=== PATIENT | female | born 1970 | race Caucasian/White ===

== ENCOUNTER 2017-02-09 05:49 | Inpatient (IN) | payer OTHER ==
[2017-02-08 09:54] VITALS: BMI 27.0
[~2017-02-09] VITALS: Ht 152.4 cm; Wt 62.7 kg
[2017-02-09] VITALS (26 sets, daily range): BP systolic 122–161; BP diastolic 73–88; PULSE 60–79; RESP 16–21; Ht 152.4 cm; Wt 62.7 kg
[~2017-02-09 05:49] MED LIST: AMLO-147 PO; LISI-329 PO
[2017-02-09] MEDS ORDERED: OXYCODONE/ACETAMINOPHEN (5/325) TAB PO PRN ×2 (06:30)
[2017-02-09] MEDS ORDERED: FENTAnyl 50 MCG/ML VIAL IV PRN ×2 (06:30)
[2017-02-09] MEDS ORDERED: hydrALAzine 20 MG INJ IV PRN (06:30)
[2017-02-09] MEDS ORDERED: MIDAZOLAM 1 MG/ML 2 ML INJ IV PRN (06:30)
[2017-02-09] MEDS ORDERED: HYDROmorphONE (0.2 MG/ML) 10ML SYG IV PRN ×3 (06:30)
[2017-02-09] MEDS ORDERED: ONDANSETRON 4 MG INJ IV PRN ×2 (06:30→09:30)
[2017-02-09] MEDS ORDERED: GLYCOPYRROLATE 0.4 MG INJ ONE (06:30)
[2017-02-09] MEDS ORDERED: EPHEDrine SULFATE 50 MG/5 ML SYG IV PRN (06:30)
[2017-02-09] MEDS ORDERED: LABETALOL HCL 20MG INJ IV PRN (06:30)
[2017-02-09] MEDS ORDERED: ROCURONIUM 50 MG INJ ONE (06:30)
[2017-02-09] MEDS ORDERED: morphine (1 MG/ML) 10ML SYRINGE IV PRN ×3 (06:30)
[2017-02-09] MEDS ORDERED: MEPERIDINE 25 MG INJ IV PRN (06:30)
[2017-02-09] MEDS ORDERED: LIDOCAINE 2% (SDV) 5 ML INJ ONE (06:30)
[2017-02-09] MEDS ORDERED: ATROPINE 1 MG/10 ML SYRINGE IV PRN (06:30)
[2017-02-09] MEDS ORDERED: NEOSTIGMINE 3 MG/3 ML SYRINGE ONE (06:30)
[2017-02-09] MEDS ORDERED: FENTAnyl 50 MCG/ML VIAL ONE (06:30)
[2017-02-09] MEDS ORDERED: PROPOFOL 20 ML ONE (06:30)
[2017-02-09] MEDS ORDERED: DIPHENHYDRAMINE 50 MG INJ IV PRN (06:30)
[2017-02-09] MEDS ORDERED: MIDAZOLAM 1 MG/ML 2 ML INJ ONE (06:30)
[2017-02-09] MEDS ORDERED: DEXAMETHASONE 4 MG/ML 1 ML INJ ONE (06:31)
[2017-02-09] MEDS ORDERED: ONDANSETRON 4 MG INJ ONE (06:31)
[2017-02-09] MEDS ORDERED: VASOPRESSIN 20 UNITS INJ ONE (06:42)
[2017-02-09] MEDS ORDERED: CEFAZOLIN 1 GM INJ ONE (07:00)
[2017-02-09] MEDS ORDERED: LABETALOL HCL 20MG INJ ONE (07:36)
[2017-02-09] MEDS ORDERED: HYDROmorphONE 0.2 MG/ML PCA IV SCH (09:30)
[2017-02-09] MEDS: LACTATED RINGER'S 1,000 ML IV SCH ×2 (16:16→21:39)
[2017-02-09] MEDS: MAGNESIUM HYDROXIDE 30ML CUP PO SCH (16:58)
[2017-02-10 00:05] VITALS: BP 158/86; RESP 19
[2017-02-10 00:12] VITALS: BP 158/83; RESP 18
[2017-02-10 05:00] VITALS: BP 155/80; PULSE 72; RESP 18
[2017-02-10 05:34] LABS: ADD SCAN DIFF NO
[2017-02-10 05:35] LABS: BASOPHILS % 0.1 % (0.0-2.0); HEMATOCRIT 33.1 % (37.0-47.0); HEMOGLOBIN 10.2 g/dl (12.0-16.0); LYMPHOCYTES % 5.5 % (15.0-51.0); MEAN CORPUSCULAR HEMOGLOBIN 21.7 pg (29.0-33.0); MEAN CORPUSCULAR HGB CONC 30.8 g/dl (32.0-37.0); MEAN CORPUSCULAR VOLUME 70.4 fl (82.0-101.0); MEAN PLATELET VOLUME 9.9 fl (7.4-10.4); MONOCYTE # 0.9 10^3/ul (0.3-0.9); NEUTROPHILS % 88.8 % (39.0-77.0); PLATELET COUNT 438 10^3/UL (140-415); RED CELL DISTRIBUTION WIDTH 20.7 % (11.5-14.5)
[2017-02-10] MEDS: LACTATED RINGER'S 1,000 ML IV SCH ×3 (05:46→20:21)
[2017-02-10] MEDS ORDERED: BISACODYL 10 MG SUPP PR ONE ×2 (06:00→17:00)
[2017-02-10 06:18] LABS: ALBUMIN 4.6 g/dl (3.3-4.9); ALBUMIN/GLOBULIN RATIO 1.48; BILIRUBIN,INDIRECT 0.3 mg/dl (0-1.1); BILIRUBIN,TOTAL 0.3 mg/dl (0.2-1.3); CALCIUM 9.2 mg/dl (8.4-10.2); CREATININE 0.5 mg/dl (0.44-1.00); TOTAL PROTEIN 7.7 g/dl (6.1-8.1)
[2017-02-10] MEDS: MAGNESIUM HYDROXIDE 30ML CUP PO SCH ×2 (06:43→16:16)
[2017-02-10 08:00] VITALS: BP 146/78; RESP 18
[2017-02-10] MEDS ORDERED: ACETAMINOPHEN 325 MG TAB PO PRN (08:30)
--- NOTE | 2017-02-10 08:39 | PREOPHP ---
DATE OF ADMISSION: 02/09/2017 HISTORY OF PRESENT ILLNESS: This is a 46-year-old lady, 5, para 3 with 3 spontaneous abortions. Her last normal menstrual period was a few days prior to admission. She was admitted for total abdominal hysterectomy, possible bilateral salpingo-oophorectomy. This patient complains of chronic pelvic pain for many months and getting worse up to the time of admission. She bleeds very heavy with her period associated with blood clots for many months as well. She had 1 abnormal Pap smear, it was ASCUS. She also is known to have fibroid uterus so she was admitted for the above procedure. The procedures were explained to the patient and she understood everything totally. The risks and benefits and alternatives were discussed with her as well. PAST MEDICAL HISTORY: No history of diabetes, TB, asthma. ALLERGIES: NO ALLERGIES. SOCIAL HISTORY: The patient does not smoke. MEDICATIONS: She takes medication for her high blood pressure. MODEL ARTISTS' HISTORY: She had menarche at the age of 12, every 28 days and for 3 to 4 days duration and moderate in amount. She is 5, para 3, with 3 sections and 2 spontaneous abortions. FAMILY HISTORY: Mother has high blood pressure. PAST SURGICAL HISTORY: She also has had surgery on the back of the left ear in 2006. REVIEW OF SYSTEMS: CARDIOVASCULAR: No chest pain. RESPIRATORY: No cough. GASTROINTESTINAL: No diarrhea. No vomiting. GENITOURINARY: No dysuria. PHYSICAL EXAMINATION: GENERAL: Reveals a conscious, coherent lady in no acute distress. VITAL SIGNS: Blood pressure 120/80, pulse rate 80 per minute, respirations 16 per minute. BREASTS: Within normal limits. CARDIAC: Heart within normal limits. LUNGS: Within normal limits. ABDOMEN: Soft. No organomegaly. GENITOURINARY: Pelvic exam revealed the cervix to be firm. Uterus about 14 weeks' size. Adnexa were negative for masses. RECTAL: Exam confirmed pelvic findings. EXTREMITIES: No pedal edema. ADMITTING DIAGNOSES: 1. Fibroid uterus. 2. Chronic pelvic pain. 3. Menorrhagia. 4. Rule out pelvic adhesions. PLAN: The patient was planned to have the above procedure. Dictated By: Agatha Crook MD /debi/ /Document#: [id number]
[2017-02-10] MEDS: AMLODIPINE 10 MG TAB PO SCH (09:17)
[2017-02-10] MEDS: HYDROCHLOROTHIAZIDE 25 MG TAB PO SCH (09:17)
[2017-02-10] MEDS: LISINOPRIL 20 MG TAB PO SCH (09:18)
[2017-02-10] MEDS ORDERED: OXYCODONE/ACETAMINOPHEN (5/325) TAB PO PRN ×2 (10:00)
[2017-02-10 19:00] VITALS: BP 129/70; RESP 19
[2017-02-10] MEDS: OXYCODONE/ACETAMINOPHEN (5/325) TAB PO PRN (23:51)
[2017-02-11 05:17] LABS: ADD SCAN DIFF NO
[2017-02-11 05:22] LABS: BASOPHILS % 0.3 % (0.0-2.0); EOSINOPHILS # 0.1 10^3/ul (0.0-0.5); EOSINOPHILS % 0.7 % (0.0-7.0); HEMATOCRIT 30.7 % (37.0-47.0); HEMOGLOBIN 9.2 g/dl (12.0-16.0); LYMPHOCYTES # 1.8 10^3/ul (0.8-2.9); MEAN CORPUSCULAR HEMOGLOBIN 21.4 pg (29.0-33.0); MEAN CORPUSCULAR VOLUME 71.6 fl (82.0-101.0); MEAN PLATELET VOLUME 9.8 fl (7.4-10.4); MONOCYTE # 0.8 10^3/ul (0.3-0.9); MONOCYTES % 6.1 % (0.0-11.0); NEUTROPHIL # 9.5 10^3/ul (1.6-7.5); NEUTROPHILS % 77.4 % (39.0-77.0); PLATELET COUNT 410 10^3/UL (140-415); RED BLOOD COUNT 4.29 10^6/ul (4.20-5.40); RED CELL DISTRIBUTION WIDTH 21.5 % (11.5-14.5); WHITE BLOOD COUNT 12.3 10^3/ul (4.8-10.8)
[2017-02-11] MEDS: OXYCODONE/ACETAMINOPHEN (5/325) TAB PO PRN ×2 (05:32→14:20)
[2017-02-11] MEDS: MAGNESIUM HYDROXIDE 30ML CUP PO SCH ×2 (05:33→17:00)
[2017-02-11 06:06] LABS: CALCIUM 8.8 mg/dl (8.4-10.2); CREATININE 0.57 mg/dl (0.44-1.00); POTASSIUM 3.6 mmol/L (3.5-5.1)
[2017-02-11] MEDS: LACTATED RINGER'S 1,000 ML IV SCH ×2 (07:30→15:30)
[2017-02-11 08:34] VITALS: BP 150/82; RESP 18
[2017-02-11] MEDS: HYDROCHLOROTHIAZIDE 25 MG TAB PO SCH (09:07)
[2017-02-11] MEDS: AMLODIPINE 10 MG TAB PO SCH (09:07)
[2017-02-11] MEDS: LISINOPRIL 20 MG TAB PO SCH (09:07)
[2017-02-11 20:25] VITALS: BP 101/59; RESP 20
--- NOTE | 2017-02-15 13:36 | OPR ---
DATE OF OPERATION: 02/09/2017 PREOPERATIVE DIAGNOSIS: Fibroid uterus, chronic pelvic pain, perineal relaxation, and menorrhagia. POSTOPERATIVE DIAGNOSIS: Fibroid uterus, chronic pelvic pain, perineal relaxation, and menorrhagia, plus bilateral ovarian cysts with pelvic and abdominal adhesions. SURGEON: . ANESTHESIA: General. OPERATION PERFORMED: Exploratory laparotomy, total abdominal hysterectomy, lysis of severe pelvic and abdominal adhesions, bilateral ovarian cystectomy and vaginal suspension. OPERATIVE TECHNIQUE: Under general anesthesia, the patient was prepped and draped in the usual fashion for abdominal surgery. After checking for the effect of the anesthesia, the previous Pfannenstiel scar was excised. A 12 cm skin incision was performed by opening the skin up to the fascia. Small blood vessels were noted to be oozing and these were cauterized. The fascia was opened transversely and peritoneal transversely. The peritoneum was opened vertically. There was some thick band of adhesions noted at the midportion of the uterus. The peritoneum was attached to the anterior midportion of the uterus. So, the incision was carried transversely by cutting the muscles and the peritoneum transversely, then the severe adhesions that were attached to the anterior parietal peritoneum were all lysed by sharp and blunt dissection. After lysing the adhesions and uterus from the anterior parietal peritoneum, then the self retaining retractor was put in place, but removed after having difficulty in pulling the uterus out, then the uterus was pulled out from the pelvic cavity. The right utero-ovarian and right uterotubal ligament was grasped with Tony's as well as the left utero-ovarian and left uterotubal ligament were both grasped with Tony's for traction. Then the left round ligament was grasped with 2 Tony's and cut and 0 Vicryl was used and tied. The left broad ligament was skeletonized for the development of the bladder flap. The left uteroovarian and left uterotubal ligament was grasped with 2 hemiclamps and 4-0 Vicryl with straight Tony and cut. At first a free tie with 0 Vicryl was used followed by Yessica suture. The same thing was done on the right side. The bleeders were checked and there was no bleeding noted. Then a picture was taken was taken on the uterus. The uterus was noted to be about 16 weeks size and globular. Then once again the bladder was from the cervix by sharp and blunt dissection. Thick band of adhesions were noted due to the previous times 3. Then the left uterine vessels were brought to view. The left uterine vessels were with hemiclamp and with straight Tony and cut, a stick tie with 0 Vicryl was used on each clamp. The same thing was done on the right side. The bleeders were checked and there was no bleeding noted. Once again, the bladder was from the cervix by sharp and blunt dissection. Then 2 more Tony's were placed at the hepato-cervical tissue on the left and right side and was cut and stick tie with 0 Vicryl was used and the body of the uterus was excised. The remaining cervix was grasped with 2 fingertooth tenaculum. Then the self-retaining retractor was put in place, the bladder blade was put in place, the bowels were packed away from the operative field with the aid of 4 wet lap sponges and the upper blade was put in place, and once again the bladder was from the cervix by sharp and blunt dissection. About 4 more Tony's were placed at the hepatocervical tissue on the left and right side, and on its clamp the tissue was cut and a stick tie with 0 Vicryl was used. Bleeders were checked and there was no bleeding noted. Another piece of cervix was excised. The pelvis was noted to be very deep. Then once again the cervix was grasped with 2 fingertooth tenaculum and was again the bladder was from the cervix by sharp and blunt dissection. About 5 more Tony's were placed at the hepatocervical tissue on the left and right side and on its clamp the tissue was cut and a stick tie with 0 Vicryl was used. Then the left uterosacral ligament was grasped with Tony and cut, a stick tie with 0 Vicryl was used and tied. The same thing was done on the right side. Cervical vaginal angle was brought to view. The cervical vaginal angle was grasped with 2 Yessica clamps and the rest of the cervix was excised. Yessica suture was put in on its clamp. Then the vaginal cuff was closed with reinforcement suture with 2 more continuous sutures with 0 Vicryl. The right angle of the vagina was sutured with right paracervical tissue and in turn tied with a right round ligament for vaginal suspension. After checking for any bleeders, and which there were none, the same thing was done on the left side. The over it was noted to have corpus luteal cyst. The corpus luteal cyst on the right side was excised. The remaining ovarian was sutured with 2-0 chromic. Bleeders were checked and there was no bleeding noted. The same thing was done on the left side. There was small noted to be about 3 by 3 cm, but small 1 cm corpus luteal cyst, also the biopsy on the left ovary was done. The remaining ovarian tissue was sutured with continuous suture with 0 chromic. Bleeders were checked and there was no bleeding noted. After checking for any bleeders, and which there were none, irrigation was done with about 200 cc of normal saline. Once again, all the stumps were checked for any bleeders and there was no bleeding noted. Then after correct sponge count and instrument count was confirmed by the industrial machine system technician and gas brazer, the abdomen was closed in the usual fashion using 0 Vicryl for the peritoneum, 0 Vicryl for the muscles, for the fascia 0 Vicryl continuous stitch was used, followed by a few figure of 8 sutures for the subcutaneous tissues closed with 3-0 Vicryl, and the skin was closed with 3-0 Vicryl subcuticular suture was used. The patient tolerated the procedure well. Estimated blood loss was about 300 cc. Vital signs were stable during and after the procedure. Dictated By: Agatha Crook MD /debi/ac /Document#: [id number]
== END 2017-02-11 21:20 | disposition home or self-care (01) | DRG 743 ==
LOC: REC 05:49 → MERGE 07:30 → MS1 09:29
PROVIDERS: ADMIT Obstetrics & Gynecology; ATTEND Obstetrics & Gynecology
PROC: 0UTC0ZZ Resection of Cervix, Open Approach (ICD-10-PCS; 2017-02-09)
PROC: 0UB20ZZ Excision of Bilateral Ovaries, Open Approach (ICD-10-PCS; 2017-02-09)
PROC: 0DNW0ZZ Release Peritoneum, Open Approach (ICD-10-PCS; 2017-02-09)
PROC: 0USG0ZZ Reposition Vagina, Open Approach (ICD-10-PCS; 2017-02-09)
PROC: 30233N1 Transfusion of Nonautologous Red Blood Cells into Peripheral Vein, Percutaneous Approach (ICD-10-PCS; 2017-02-09)
PROC: 0UT90ZZ Resection of Uterus, Open Approach (ICD-10-PCS; principal; 2017-02-09 07:30)
DX: D25.9 Leiomyoma of uterus, unspecified (principal); K66.0 Peritoneal adhesions (postprocedural) (postinfection); N83.12 Corpus luteum cyst of left ovary; N83.11 Corpus luteum cyst of right ovary; N81.89 Other female genital prolapse
CPT/HCPCS: 36430; 80048; 80053; 84702; 85025; 86850; 86900; 86901; 86920; 87086; 88305; J0690; J1100; J1170; J2250; J2405; J2710; J3010; J7120; P9016

== ENCOUNTER 2018-09-22 09:58 | Emergency (ER) | payer OTHER ==
[~2018-09-22] VITALS: Ht 160 cm; Wt 68.7 kg
[2018-09-22 11:10] VITALS: Ht 160 cm; Wt 68.7 kg
[2018-09-22] MEDS ORDERED: CETI10CA PO (12:09)
[2018-09-22] MEDS ORDERED: IBUP-1542 PO (12:09)
[2018-09-22] MEDS ORDERED: PSEU120T12 PO (12:09)
[2018-09-22] MEDS ORDERED: BENZ-6 PO (12:09)
--- NOTE | 2018-09-22 15:03 | ERD ---
ER Documentation Chief Complaint Chief Complaint COUGH, FLU SYMPTOMS FOR 3 DAYS HPI 48-year-old female presents to the ED complaining of cough, congestion, sore throat for the past 3 days. She denies fevers. Denies chest pain or shortness of breath. She states that she is tried dextromethorphan without relief ROS All systems reviewed and are negative except as per history of present illness. Medications Home Meds Active Scripts Benzonatate* (Tessalon Perle*) 100 Mg Capsule, 100 MG PO Q8H PRN for COUGH, #30 CAP Prov:VALE SALCIDO PA-C 09/22/18 Pseudoephedrine Hcl (Sudafed 12 Hour) 120 Mg Tablet.sa, 120 MG PO BID, #10 Prov:VALE SALCIDO PA-C 09/22/18 Ibuprofen* (Motrin*) 600 Mg Tab, 600 MG PO Q6H PRN for PAIN AND OR ELEVATED TEMP, #30 TAB Prov:VALE SALCIDO PA-C 09/22/18 Cetirizine Hcl* (Zyrtec*) 10 Mg Capsule, 10 MG PO DAILY, #30 TAB.CHEW Prov:VALE SALCIDO PA-C 09/22/18 Reported Medications Lisinopril-Hydrochlorothiazide (Lisinopril-HCTZ) 20-25 Mg Tab, 1 TAB PO DAILY, TAB 04/01/15 Amlodipine Besylate* (Amlodipine Besylate*) 10 Mg Tablet, 10 MG PO DAILY, TAB 04/01/15 Allergies Allergies: Coded Allergies: No Known Allergy (Unverified , 09/22/18) PMhx/Soc History of Surgery: Yes (csection x 3, neck surjery) Anesthesia Reaction: No Hx Neurological Disorder: No Hx Respiratory Disorders: No Hx Cardiac Disorders: No Hx Psychiatric Problems: No Hx Miscellaneous Medical Probl: Yes (hysterectomy) Hx Alcohol Use: No Hx Substance Use: No Hx Tobacco Use: No Smoking Status: Never smoker Physical Exam Vitals Vital Signs Date Temp Pulse Resp B/P (MAP) Pulse Ox O2 O2 Flow FiO2 Time Delivery Rate 09/22/18 98.7 82 18 141/69 97 11:10 (93) Physical Exam GENERAL: well-developed/well-nourished, in no apparent distress, non-toxic appearing HEAD: NC/AT, no swelling noted in frontal or maxillary areas EARS: bilateral tympanic membrane is intact without erythema or effusion NARES: congested THROAT: oropharynx non-erythematous without exudates, no tonsil enlargement, EYES: Conjunctiva normal NECK: Supple, no lymphadenopathy PULM: CTA bilaterally, no rales, rhonchi, or wheezing heard CV: Normal S1S2, RRR, good capillary refill GI: Soft, non-distended, normal bowel sounds, non-tender BACK: No midline tenderness, no masses EXT No clubbing, cyanosis, or edema NEURO: Alert and Orientated SKIN: Intact, normal turgor PSYCH: Normal mood and mentation Procedures/MDM 48-year-old female presents to the ER with upper respiratory infection, which is most likely viral. My clinical suspicion is low suspicion for pneumonia, strep pharyngitis, or pulmonary emergencies due to physical examination. Patient's lungs were clear on examination. stable for discharge. Prescription for, Loy Rodriguez Sudafed was given to patient, discussed to return to the ED if not improving as expected or follow-up with a primary care physician. Patient understood and agreed with this plan. Departure Diagnosis: Primary Impression: Upper respiratory infection Condition: Stable Patient Instructions: Preventing Common Respiratory Infections, Uri, Viral, No Abx (Adult) Additional Instructions: Visite a meza nicole de leon para un EXAMEN.Regrese a estas instalaciones si no se mejora fortino esperbamos o fortino le dijimos. [place] toda la medicina kristine y fortino se le indic. Regrese a estas instalaciones si no se mejora fortino esperbamos o fortino le dijimos. VALE SALCIDO PA-C Sep 22, 2018 15:02
== END 2018-09-22 13:03 | disposition home or self-care (01) ==
LOC: FTE 09:58
DX: J06.9 Acute upper respiratory infection, unspecified (principal)
CPT/HCPCS: 99283